=== PATIENT | female | born 1975 | race Caucasian/White ===

== ENCOUNTER 2019-10-27 14:30 | Outpatient (CLI) | payer OTHER, SELFPAY | END 2019-10-27 14:31 | disposition home or self-care (01) | LOC: CHSLAB 14:34 | PROVIDERS: PCP Internal Medicine; Visit Provider Specialist | DX: D22.5 Melanocytic nevi of trunk (principal) | CPT/HCPCS: 88305; 88342 ==

== ENCOUNTER 2023-02-01 07:49 | Outpatient (CLI) | payer OTHER, SELFPAY ==
--- NOTE | ~2023-02-01 | MM_ITS ---
EXAMINATION: MM screening efrem BI w fátima HISTORY: Screening mammogram TECHNIQUE: Craniocaudal and mediolateral oblique 3-D tomosynthesis images were obtained and synthetic 2-D images were generated. CAD analysis was submitted and interpreted. COMPARISON: 12/17/2018 bilateral screening mammogram BREAST PARENCHYMAL COMPOSITION: The breasts are heterogeneously dense, which may obscure small masses . FINDINGS: There is no evidence of suspicious mass, calcification, or architectural distortion to sugg est malignancy in either breast. There has been no suspicious interval change. IMPRESSION: 1. No mammographic evidence of malignancy. 2. Recommend routine screening mammography in one year. BI-RADS Category 1: Negative Reviewed, dictated and finalized at location A.
== END 2023-02-01 07:50 | disposition home or self-care (01) ==
LOC: CHSIMG 07:51
PROVIDERS: PCP Internal Medicine; Visit Provider Nurse Practitioner
DX: Z12.31 Encounter for screening mammogram for malignant neoplasm of breast (principal)
CPT/HCPCS: 77063; 77067

== ENCOUNTER 2023-12-31 06:51 | Day surgery (SDC) | payer OTHER, SELFPAY ==
[2023-10-11 13:30] VITALS: BMI 35.0
[2023-12-23 12:30] VITALS: BMI 32.9
--- NOTE | 2023-12-24 11:02 | PM.HPGS ---
History of Present Illness History of Present Illness Consent: Risks, benefits, and alternatives have been discussed and questions answered. Patient agrees to proceed with procedure. Chief complaint: Screening Neoplasm of Colon Narrative: Malissa Thomas is a 48 year old female who is referred for colon cancer screening. Review of Systems Review of Systems: All systems reviewed & are unremarkable except as noted in HPI and below PMFSH Social History Social History Smoking status: Never smoker Alcohol intake: current Drinks per week: 3 Substance use type: does not use Living arrangements: with family Spiritual care concerns: No Meds Home Medications and Allergies Home Medications Medication Instructions Recorded Confirmed Type dextromethorphan-guaifenesin ER 60 1 tablet PO Q12H 12/23/23 12/31/23 History mg-1,200 mg tab,extend release,12hr (Mucinex DM) norethindrone 1 mg-e. estradiol 20 1 tablet PO DAILY 12/23/23 12/31/23 History mcg (24)-iron 75 mg (4) chew tablet (Mibelas 24 Fe) [id number] 1 cap PO Q6H PRN other 12/23/23 12/31/23 History 30 mg-15 mg-325 mg capsule sertraline 50 mg tablet 50 mg PO DAILY 12/23/23 12/31/23 History Allergies Allergy/AdvReac Type Severity Reaction Status Date / Time Sulfa (Sulfonamide Allergy Mild Hives Verified 12/31/23 07:18 Antibiotics) codeine AdvReac Mild Gastrointestinal Verified 12/31/23 07:18 Upset Exam Resp: Auscultation: clear to auscultation bilaterally Cardio: Rate: regular rate Rhythm: regular rhythm GI: GI Palp: Yes Soft to palpation and No Tenderness to palpation present (GI) Assessment and Plan Assessment and plan (1) Colon cancer screening: Code(s): Z12.11 - Encounter for screening for malignant neoplasm of colon Status: Acute Assessment and Plan: Colonoscopy with possible biopsy or polypectomy or cautery or injection of substances.
[2023-12-31 07:23] VITALS: BMI 34.4
[2023-12-31 07:25] VITALS: BP 119/54; PULSE 70; RESP 18; TEMP 36.2; O2SAT 99
[2023-12-31] MEDS: LACTATED RINGERS 1,000 ML 150 ML IV CONT (07:42)
--- NOTE | 2023-12-31 07:57 | WPDANESEPPF ---
Anes - Initial Pre Proc Eval Procedure: Operation Date: 12/31/23 08:30 Proposed Procedures p Screening Colonoscopy - Mehul Mendez MD Date/Time: 12/31/23 07:57 Surgeon: Mehul Mendez MD Pre Op Diagnosis: Screening Neoplasm of Colon Patient Data Age: 48 Gender: F Height: 1.7 m Weight: 99.6 kg Last Vital Signs Temp 36.2 C L 12/31/23 07:25 Pulse 70 12/31/23 07:25 Resp 18 12/31/23 07:25 BP 119/54 L 12/31/23 07:25 Pulse Ox 99 12/31/23 07:25 O2 Del Method Room Air 12/31/23 07:25 Allergies Allergy/AdvReac Type Severity Reaction Status Date / Time Sulfa (Sulfonamide Allergy Mild Hives Verified 12/31/23 07:18 Antibiotics) codeine AdvReac Mild Gastrointestinal Verified 12/31/23 07:18 Upset Home Medications Medication Instructions Recorded Confirmed Type dextromethorphan-guaifenesin ER 60 1 tablet PO Q12H 12/23/23 12/31/23 History mg-1,200 mg tab,extend release,12hr (Mucinex DM) norethindrone 1 mg-e. estradiol 20 1 tablet PO DAILY 12/23/23 12/31/23 History mcg (24)-iron 75 mg (4) chew tablet (Mibelas 24 Fe) [id number] 1 cap PO Q6H PRN other 12/23/23 12/31/23 History 30 mg-15 mg-325 mg capsule sertraline 50 mg tablet 50 mg PO DAILY 12/23/23 12/31/23 History Patient hx anesthesia problems: none Family hx anesthesia problems: none Results Review: All pre-operative results and documents have been reviewed as part of the pre-operative evaluation. [facility] Past Medical History Medical History (Updated 12/31/23 @ 07:57 by Gavin Castañeda MD) Anxiety Obesity Social History Social History Smoking status: Never smoker Alcohol intake: current Drinks per week: 3 Substance use type: does not use Living arrangements: with family Spiritual care concerns: No Anes - Eval Final PreProcedure Day of Procedure 12/31/23 07:57 Patient weight: obese Heart: regular rate and rhythm Lungs: clear to auscultation Airway: Mallampati scale class II Neurological: alert and oriented Last oral intake: >/= 8 hours ASA classification: II Emergent: no Anesthetic plan: proceed Anesthesia type and monitoring: general GIVS and standard monitoring Results Review: All pre-operative results and documents have been reviewed as part of the pre-operative evaluation. Informed Consent: The patient's anesthetic plan and its attendant risks and benefits were discussed with the patient/family/POA. Questions were solicited and answers provided to the satisfaction of the patient/family/POA.
[2023-12-31 08:41] VITALS: BP 112/65; PULSE 51; RESP 18; O2SAT 100
[2023-12-31 08:51] VITALS: BP 95/77; PULSE 68; RESP 17; O2SAT 100
[2023-12-31 09:01] VITALS: BP 102/62; PULSE 54; RESP 16; O2SAT 100
--- NOTE | 2023-12-31 09:07 | WPDANESPN ---
Anes - Prog Note Post-Op Date/Time: 12/31/23 09:07 Cardiovascular status: normal Respiratory status: normal Airway patency: baseline Mental status: baseline Post-Op hydration status: normal Vital Signs: Last Vital Signs Temp 36.2 C L 12/31/23 07:25 Pulse 54 L 12/31/23 09:01 Resp 16 12/31/23 09:01 BP 102/62 12/31/23 09:01 Pulse Ox 100 12/31/23 09:01 O2 Del Method Room Air 12/31/23 09:01 Pain Score (VAS): 0/10 I/O: Intake & Output 12/30/23 12/31/23 12/31/23 23:59 07:59 15:59 Intake Total 650 Balance 650 Patient Feedback: Patient satisfied with anesthetic care.
== END 2023-12-31 09:07 | disposition home or self-care (01) ==
PROVIDERS: PCP Internal Medicine; Visit Provider Internal Medicine Gastroenterology
PROC: 0DJD8ZZ Inspection of Lower Intestinal Tract, Via Natural or Artificial Opening Endoscopic (ICD-10-PCS; CPT 45378; principal; 2023-12-31 08:30)
DX: Z12.11 Encounter for screening for malignant neoplasm of colon (principal); D12.8 Benign neoplasm of rectum
CPT/HCPCS: 45380

== ENCOUNTER 2023-12-31 11:39 | Outpatient (NON) | payer OTHER, SELFPAY | END 2023-12-31 11:40 | disposition home or self-care (01) | LOC: ANHLAB 01-01 11:41 | PROVIDERS: PCP Internal Medicine; Visit Provider Internal Medicine Gastroenterology | DX: Z12.11 Encounter for screening for malignant neoplasm of colon (principal) | CPT/HCPCS: 88305 ==